=== PATIENT | female | born 1945 | race Caucasian/White ===

== ENCOUNTER → 2023-10-26 14:44 | Outpatient (REF) | payer OTHER, SELFPAY | LOC: WDC 14:44 | PROVIDERS: ATTENDING PHYSICIAN Student in an Organized Health Care Education/Training Program | DX: R92.2 Inconclusive mammogram (principal); R92.30 Dense breasts, unspecified | CPT/HCPCS: 76641 ==

== ENCOUNTER → 2024-06-07 12:49 | Outpatient (REF) | payer OTHER, SELFPAY | LOC: WDC 12:49 | PROVIDERS: ATTENDING PHYSICIAN Student in an Organized Health Care Education/Training Program | DX: Z12.31 Encounter for screening mammogram for malignant neoplasm of breast (principal) | CPT/HCPCS: 77063; 77067 ==

== ENCOUNTER → 2024-06-27 09:49 | Outpatient (REF) | payer OTHER, SELFPAY | LOC: WDC 09:49 | PROVIDERS: ATTENDING PHYSICIAN Student in an Organized Health Care Education/Training Program | DX: R92.8 Other abnormal and inconclusive findings on diagnostic imaging of breast (principal) | CPT/HCPCS: 76642; 77065 ==

== ENCOUNTER → 2024-07-06 06:25 | Outpatient (REF) | payer OTHER, SELFPAY ==
--- NOTE | 2024-07-06 08:55 | OID.BR.INTR ---
[facility] Breast Navigator - Initial
- -
Date of Contact: 07/06/24
Met with patient. Patient given written information on navigator services available at [facility]. Will follow up as needed per protocol.
== END ==
LOC: WDC 06:25
PROVIDERS: ATTENDING PHYSICIAN Student in an Organized Health Care Education/Training Program
DX: R92.1 Mammographic calcification found on diagnostic imaging of breast (principal)
CPT/HCPCS: 88305; 19081; 76098; 88341; 88342; 88360; A4648

== ENCOUNTER → 2024-08-24 07:55 | Outpatient (REF) | payer OTHER, SELFPAY | LOC: WDC 07:55 | PROVIDERS: ATTENDING PHYSICIAN Surgery | DX: D05.92 Unspecified type of carcinoma in situ of left breast (principal) | CPT/HCPCS: 19281; A4648 ==

== ENCOUNTER 2024-08-25 06:25 | Day surgery (SDC) | payer OTHER, SELFPAY ==
[2024-08-01 08:58] LABS: Hematocrit 42.5 % (37.0-47.0); Hemoglobin 13.7 g/dL (12.0-16.0); Mean Corp Hgb Conc. 32.2 g/dL (33.0-37.0); Mean Corpuscular Volume 83.7 fL (81.0-99.0); Mean Platelet Volume 9.4 fL (7.4-10.4); Platelet Count 261 10^3/uL (130-400); Red Blood Cell Count 5.08 10^6/uL (4.20-5.40); Red Cell Dist. Width 13.1 % (11.5-14.5); White Blood Cell Count 6.9 10^3/uL (4.8-10.8)
[2024-08-01 09:32] LABS: ALT (SGPT) 28 U/L (0-35); AST (SGOT) 29 U/L (14-36); Albumin 4.1 g/dl (3.5-5.0); Alkaline Phosphatase 57 U/L (38-126); Blood Urea Nitrogen 19 mg/dl (7-17); Calcium 9.2 mg/dl (8.4-10.2); Carbon Dioxide 27 mmol/L (22-30); Glucose 104 mg/dl (70-99); Potassium 4.6 mmol/L (3.5-5.1); Sodium 140 mmol/L (135-145); Total Bilirubin 0.5 mg/dl (0.2-1.3); Total Protein 6.4 g/dl (6.3-8.2); eGFR > 60.00
[2024-08-01 09:38] LABS: Chloride 105 mmol/L (98-107)
[2024-08-01 09:39] LABS: Prealbumin (Transthyretin) 24.8 mg/dl (17.6-36.0)
[2024-08-01 09:51] LABS: Vitamin D, 25-OH*** 39.5 ng/mL (30-80)
[2024-08-01 10:26] VITALS: BMI 26.5
[2024-08-25] VITALS (8 sets, daily range): BP systolic 109–152; BP diastolic 68–120; BMI 26.5
[2024-08-25] MEDS: TYLENOL 1000 MG PO (09:43)
[2024-08-25] MEDS: LOVENOX 40 MG SC (09:53)
[2024-08-25] MEDS: NORMOSOL-R/PLASMALYTE-A 1000 IV (09:55)
--- NOTE | 2024-08-25 11:37 | W.IMMPOSTOP ---
Surgical Immed Post Op Note
-
Primary Surgeon: Yadiel
Assisting Surgeon: None
Pre-op Diagnosis: Left breast DCIS
Post-op Diagnosis: Left breast DCIS
Procedure Performed: Lft localized lumpectomy
Anesthesia Type: TIVA
Specimen / Cultures: Left lumpectomy, margins
Estimated Blood Loss: 4cc
Complications: None
Operative Findings: Clip and reflector in specimen
--- NOTE | 2024-08-25 11:38 | OR.RPT ---
Operative Report
Operative Report
Pre-Op DX: Left breast DCIS
Post-Op DX: Left breast DCIS
Procedure: Left localized lumpectomy
Surgeon: Yadiel
Anes: TIVA
Specimens: left lumpectomy; margins
EBL: 4cc
Complications: None
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 On the day prior to the procedure the
patient presented to the [facility] and underwent Mervat Back Tender Cylinder reflector placement. On the day of surgery she presented to same-day surgical unit where she verified site and procedure. DVT and antibiotic prophylaxis were provided and the
patient was transferred to the operating room. In the supine position intravenous sedation was delivered and the left breast was prepped and draped in usual sterile fashion. Tissues were anesthetized with 1% lidocaine plain. A curvilinear
incision was made overlying the area of highest Mervat receiver bulk system signal. Skin flaps were elevated with the cautery and dissection was carried down to the appropriate area. A wide lumpectomy was performed using the cautery. Time out of body was noted
and the specimen was oriented for the pathologist. There was a strong reflector signal within the specimen. Specimen radiography confirmed the presence of the clip and reflector within it. Additional margins were harvested for permanent analysis
from the posterior, medial, superior, lateral, inferior, and anterior dimensions. These were oriented as well. Hemostasis was verified. Marcaine 0.5% plain was instilled into the tissues and hemoclips were placed in the resection cavity. Wound
was closed in multiple layers using simple interrupted 3-0 plain a deep intermediate and subcutaneous tissue and skin was closed with a running subcuticular 4-0 Monocryl. Surgical glue and sterile compressive dressings were applied. All sponge
needle and instrument counts were correct and the patient was transferred to the recovery room in stable condition.
()
== END 2024-08-25 13:09 | disposition home or self-care (01) ==
LOC: SDS 06:25
PROVIDERS: ATTENDING PHYSICIAN Surgery; FAMILY PHYSICIAN Student in an Organized Health Care Education/Training Program
DX: C50.912 Malignant neoplasm of unspecified site of left female breast (principal); R92.0 Mammographic microcalcification found on diagnostic imaging of breast; Z17.0 Estrogen receptor positive status [ER+]
CPT/HCPCS: 19301; 88305; 88307; 36415; 76098; 80053; 82306; 84134; 85027; 93005; A4648

== ENCOUNTER 2024-10-03 06:12 | Day surgery (SDC) | payer OTHER, SELFPAY ==
[2024-10-03 07:01] VITALS: BMI 25.8
[2024-10-03 07:03] VITALS: BP 144/85
[2024-10-03] MEDS: LOVENOX 40 MG SC (07:18)
[2024-10-03] MEDS: NORMOSOL-R/PLASMALYTE-A 1000 IV (07:18)
[2024-10-03] MEDS: TYLENOL 1000 MG PO (07:18)
[2024-10-03 08:27] VITALS: BP 111/61
[2024-10-03 08:30] VITALS: BP 110/65
[2024-10-03 08:45] VITALS: BP 106/63
--- NOTE | 2024-10-03 08:45 | W.IMMPOSTOP ---
Surgical Immed Post Op Note
-
Primary Surgeon: Yadiel-
Assisting Surgeon: None
Pre-op Diagnosis: Left breast ca
Post-op Diagnosis: Same
Procedure Performed: Re-excision lumpectomy left breast
Anesthesia Type: TIVA
Specimen / Cultures: left lumpectomy
Estimated Blood Loss: 2cc
Complications: None
Operative Findings: None
--- NOTE | 2024-10-03 08:47 | OR.RPT ---
Operative Report
Operative Report
Pre-Op DX: Left breast ca
Post-Op DX: Left breast ca
Procedure: Re-excision lumpectomy left breast
Surgeon: Yadiel
The patient is a 78-year-old female who had image detected ductal carcinoma in situ the left breast. 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 Her posterior and superior margins were positive so
she presents today for reexcision lumpectomy.
Patient presented to the same-day surgical suite where she verified site and procedure. She was prepped and DVT and antibiotic prophylaxis were provided. She was taken to the operating room and in the supine position intravenous sedation was
delivered. Left breast was prepped and draped in the usual sterile fashion and all tissues were anesthetized with 1% lidocaine plain.
Previous lumpectomy incision was entered sharply with the blade and dissection was carried down to the seroma cavity using the cautery. Wide reexcision was performed using the cautery. Time out of body was noted and the specimen was oriented for
the pathologist and sent for permanent analysis. Hemostasis was carefully maintained with the cautery. Marcaine 0.5% plain was instilled into all tissues and hemoclips were reviewed placed a portion of Surgicel was placed in the wound bed and this
wound was closed using simple interrupted 3-0 plain on deep intermediate and subcutaneous tissue and skin was closed with a running subcuticular 4 Monocryl.
Surgical glue and sterile compressive dressings were applied. All sponge needle and instrument counts are correct and the patient was transferred to the recovery room in stable condition.
()
[2024-10-03 09:00] VITALS: BP 104/64
[2024-10-03 09:12] VITALS: BP 112/63
== END 2024-10-03 09:22 | disposition home or self-care (01) ==
LOC: SDS 06:12
PROVIDERS: ATTENDING PHYSICIAN Surgery
DX: D05.12 Intraductal carcinoma in situ of left breast (principal); Z17.0 Estrogen receptor positive status [ER+]
CPT/HCPCS: 19301; 88307; 88341; 88342; A4648; L8000

== ENCOUNTER → 2025-06-08 15:13 | Outpatient (REF) | payer OTHER, SELFPAY | LOC: WDC 15:13 | PROVIDERS: ATTENDING PHYSICIAN Surgery; FAMILY PHYSICIAN Physician Assistant Medical | DX: Z12.31 Encounter for screening mammogram for malignant neoplasm of breast (principal) | CPT/HCPCS: 77063; 77067 ==

== ENCOUNTER → 2025-06-11 12:36 | Outpatient (REF) | payer OTHER, SELFPAY | LOC: RAD 12:36 | PROVIDERS: ATTENDING PHYSICIAN Internal Medicine; FAMILY PHYSICIAN Physician Assistant Medical | DX: M81.0 Age-related osteoporosis without current pathological fracture (principal) | CPT/HCPCS: 77080 ==

== ENCOUNTER → 2025-07-30 12:42 | Outpatient (REF) | payer OTHER, SELFPAY | LOC: WDC 12:42 | PROVIDERS: ATTENDING PHYSICIAN Surgery; FAMILY PHYSICIAN Physician Assistant Medical | DX: R92.2 Inconclusive mammogram (principal); D05.92 Unspecified type of carcinoma in situ of left breast | CPT/HCPCS: 76641 ==